=== PATIENT | male | born 1955 | race Caucasian/White ===

== ENCOUNTER 2017-02-16 10:13 | Emergency (ER) | payer MEDICARE ==
[~2017-02-16 10:13] MED LIST: EDARBI80 MG PO; LIPITOR10 MG PO; MEDROL4 M1 PO; SYNTHROID175 MCG PO; XANAX0.5 MG PO; ZYLOPRIM300 MG PO
[2017-02-16 10:59] LABS: BASO % 0.3 % (0.2-1.2); EOS # 0.4 10_X3_uL (0.0-0.5); GRAN # 8.1 10_X3_uL (1.8-5.4); GRAN % 73.6 % (34.0-67.9); HEMATOCRIT 37.6 % (40-51); HEMOGLOBIN 12.2 g/dL (13.7-17.5); LYMPH # 0.8 10_X3_uL (1.3-3.6); LYMPH % 7.4 % (21.8-53.1); MEAN CORPUSCULAR HGB CONC 32.4 g/dL (32.0-36.0); MEAN CORPUSCULAR VOLUME 92.4 fL (79-92); MEAN PLATELET VOLUME 9.6 fl (7.5-11.5); MONO # 1.6 10_X3_uL (0.3-0.8); MONO % 14.7 % (5.3-12.2); PLATELET COUNT 372 x10_3/uL (163-337); RED BLOOD COUNT 4.07 x10_6/uL (4.6-6.1); RED CELL DISTRIBUTION WIDTH 14.5 % (11.6-14.4)
[2017-02-16 11:13] LABS: ALBUMIN 3.4 gm/dL (3.4-5.0); ALKALINE PHOSPHATASE 166 U/L (50-136); ALT/SGPT 15 U/L (7.53-40.17); AST/SGOT 14 U/L (6.66-35.34); BILIRUBIN,TOTAL 0.69 mg/dL (0.0-1.0); BLOOD UREA NITROGEN 21 mg/dL (7-18); CALCIUM 8.6 mg/dL (8.7-10.7); CARBON DIOXIDE 25 mmol/L (21-32); CREATININE 0.9 mg/dL (0.6-1.3); GLUCOSE,RANDOM 219 mg/dL (70-99); POTASSIUM 4.2 mmol/L (3.5-5.1); SODIUM 136 mmol/L (136-145); TOTAL PROTEIN 7.1 gm/dL (6.4-8.2)
== END 2017-02-16 15:20 | disposition short-term general hospital (02) ==
LOC: ER 10:13
PROVIDERS: Family Medicine
DX: J40 Bronchitis, not specified as acute or chronic (principal); R06.02 Shortness of breath; R91.1 Solitary pulmonary nodule; I51.9 Heart disease, unspecified; E78.5 Hyperlipidemia, unspecified; I10 Essential (primary) hypertension; F17.210 Nicotine dependence, cigarettes, uncomplicated; Z88.2 Allergy status to sulfonamides; Z79.899 Other long term (current) drug therapy; Z79.891 Long term (current) use of opiate analgesic
CPT/HCPCS: 36415; 71010; 71250; 80048; 80053; 83880; 85025; 86738; 87040; 87070; 87205; 87400; 93005; 94664; 96365; 99070; 99284; 99285-25

== ENCOUNTER 2017-03-04 20:50 | Inpatient (IN) | payer MEDICARE ==
[~2017-03-04] VITALS: Ht 182.9 cm; Wt 120.0 kg
[2017-03-04 21:49] LABS: BASO # 0.1 10_X3_uL (0.0-0.1); BASO % 0.4 % (0.2-1.2); EOS # 0.1 10_X3_uL (0.0-0.5); EOS % 0.3 % (0.8-7.0); GRAN # 20.5 10_X3_uL (1.8-5.4); GRAN % 82.9 % (34.0-67.9); HEMATOCRIT 35.7 % (40-51); HEMOGLOBIN 11.5 g/dL (13.7-17.5); LYMPH # 1.3 10_X3_uL (1.3-3.6); LYMPH % 5.1 % (21.8-53.1); MEAN CORPUSCULAR HEMOGLOBIN 28.9 pg (27.0-33.0); MEAN CORPUSCULAR HGB CONC 32.2 g/dL (32.0-36.0); MEAN CORPUSCULAR VOLUME 89.7 fL (79-92); MEAN PLATELET VOLUME 10.2 fl (7.5-11.5); MONO # 2.8 10_X3_uL (0.3-0.8); MONO % 11.3 % (5.3-12.2); PLATELET COUNT 458 x10_3/uL (163-337); RED BLOOD COUNT 3.98 x10_6/uL (4.6-6.1); RED CELL DISTRIBUTION WIDTH 15.1 % (11.6-14.4)
[2017-03-04 21:51] LABS: WHITE BLOOD COUNT 24.7 x10_3/uL (4.2-9.1)
[2017-03-04 22:08] LABS: ALBUMIN 2.7 gm/dL (3.4-5.0); ALKALINE PHOSPHATASE 148 U/L (50-136); ALT/SGPT 29 U/L (7.53-40.17); AST/SGOT 17 U/L (6.66-35.34); BILIRUBIN,TOTAL 0.66 mg/dL (0.0-1.0); BLOOD UREA NITROGEN 25 mg/dL (7-18); CALCIUM 8.7 mg/dL (8.7-10.7); CARBON DIOXIDE 20 mmol/L (21-32); CREATININE 1.2 mg/dL (0.6-1.3); GLUCOSE,RANDOM 200 mg/dL (70-99); POTASSIUM 4.8 mmol/L (3.5-5.1); SODIUM 136 mmol/L (136-145); TOTAL PROTEIN 6.5 gm/dL (6.4-8.2)
[2017-03-05 07:27] LABS: BASO # 0.1 10_X3_uL (0.0-0.1); BASO % 0.5 % (0.2-1.2); GRAN % 91.4 % (34.0-67.9); HEMOGLOBIN 10.5 g/dL (13.7-17.5); LYMPH # 1.1 10_X3_uL (1.3-3.6); LYMPH % 4.1 % (21.8-53.1); MEAN CORPUSCULAR HEMOGLOBIN 29.2 pg (27.0-33.0); MEAN CORPUSCULAR HGB CONC 31.8 g/dL (32.0-36.0); MEAN CORPUSCULAR VOLUME 91.9 fL (79-92); MEAN PLATELET VOLUME 10.3 fl (7.5-11.5); MONO # 1.1 10_X3_uL (0.3-0.8); PLATELET COUNT 501 x10_3/uL (163-337); RED BLOOD COUNT 3.59 x10_6/uL (4.6-6.1)
[2017-03-05 07:48] LABS: WHITE BLOOD COUNT 27.3 x10_3/uL (4.2-9.1)
[2017-03-05 07:57] LABS: ALBUMIN 2.5 gm/dL (3.4-5.0); BILIRUBIN,TOTAL 0.41 mg/dL (0.0-1.0); CALCIUM 8.3 mg/dL (8.7-10.7); CREATININE 1.5 mg/dL (0.6-1.3); POTASSIUM 5.6 mmol/L (3.5-5.1); TOTAL PROTEIN 6.1 gm/dL (6.4-8.2)
[2017-03-06 07:40] LABS: HEMATOCRIT 30.8 % (40-51); MEAN CORPUSCULAR HEMOGLOBIN 29.7 pg (27.0-33.0); MEAN CORPUSCULAR HGB CONC 32.5 g/dL (32.0-36.0); MEAN CORPUSCULAR VOLUME 91.4 fL (79-92); MEAN PLATELET VOLUME 10.5 fl (7.5-11.5); RED BLOOD COUNT 3.37 x10_6/uL (4.6-6.1); RED CELL DISTRIBUTION WIDTH 14.9 % (11.6-14.4)
[2017-03-06 07:47] LABS: ALBUMIN 2.5 gm/dL (3.4-5.0); ALKALINE PHOSPHATASE 144 U/L (50-136); ALT/SGPT 30 U/L (7.53-40.17); AST/SGOT 21 U/L (6.66-35.34); BILIRUBIN,TOTAL 0.18 mg/dL (0.0-1.0); BLOOD UREA NITROGEN 32 mg/dL (7-18); CALCIUM 7.7 mg/dL (8.7-10.7); CARBON DIOXIDE 20 mmol/L (21-32); CREATININE 0.9 mg/dL (0.6-1.3); GLUCOSE,RANDOM 220 mg/dL (70-99); MAGNESIUM 2.3 mg/dL (1.8-2.4); POTASSIUM 4.7 mmol/L (3.5-5.1); SODIUM 140 mmol/L (136-145); TOTAL PROTEIN 5.8 gm/dL (6.4-8.2)
[2017-03-07 03:05] LABS: HEMATOCRIT 30.1 % (40-51); HEMOGLOBIN 9.6 g/dL (13.7-17.5); MEAN CORPUSCULAR HEMOGLOBIN 29.1 pg (27.0-33.0); MEAN CORPUSCULAR HGB CONC 31.9 g/dL (32.0-36.0); MEAN CORPUSCULAR VOLUME 91.2 fL (79-92); MEAN PLATELET VOLUME 10.1 fl (7.5-11.5); RED BLOOD COUNT 3.3 x10_6/uL (4.6-6.1); RED CELL DISTRIBUTION WIDTH 14.9 % (11.6-14.4); WHITE BLOOD COUNT 18.4 x10_3/uL (4.2-9.1)
[2017-03-07 03:31] LABS: ALBUMIN 2.2 gm/dL (3.4-5.0); ALKALINE PHOSPHATASE 113 U/L (50-136); ALT/SGPT 47 U/L (7.53-40.17); AST/SGOT 36 U/L (6.66-35.34); BLOOD UREA NITROGEN 26 mg/dL (7-18); CALCIUM 8.1 mg/dL (8.7-10.7); CARBON DIOXIDE 23 mmol/L (21-32); CREATININE 0.8 mg/dL (0.6-1.3); GLUCOSE,RANDOM 162 mg/dL (70-99); POTASSIUM 4.6 mmol/L (3.5-5.1); SODIUM 143 mmol/L (136-145); TOTAL PROTEIN 5.6 gm/dL (6.4-8.2)
[2017-03-07 03:35] LABS: BILIRUBIN,TOTAL < 0.15 mg/dL (0.0-1.0)
== END 2017-03-07 13:02 | disposition other institution (70) | DRG 180 ==
LOC: ER 20:50 → MS 23:26
PROVIDERS: Emergency Medicine; ADMIT Family Medicine
DX: C34.92 Malignant neoplasm of unspecified part of left bronchus or lung (principal); J18.9 Pneumonia, unspecified organism; N17.9 Acute kidney failure, unspecified; J44.0 Chronic obstructive pulmonary disease with (acute) lower respiratory infection; Y95 Nosocomial condition; R91.8 Other nonspecific abnormal finding of lung field; D64.9 Anemia, unspecified; R79.89 Other specified abnormal findings of blood chemistry; D47.3 Essential (hemorrhagic) thrombocythemia; D72.829 Elevated white blood cell count, unspecified; E78.5 Hyperlipidemia, unspecified; R59.0 Localized enlarged lymph nodes; I51.9 Heart disease, unspecified; E11.9 Type 2 diabetes mellitus without complications; Z95.1 Presence of aortocoronary bypass graft; F17.210 Nicotine dependence, cigarettes, uncomplicated; Z88.2 Allergy status to sulfonamides; Z79.82 Long term (current) use of aspirin; Z79.899 Other long term (current) drug therapy; Z79.4 Long term (current) use of insulin
CPT/HCPCS: 36415; 71020; 71260; 80053; 80061; 80202; 82962; 83036; 83605; 83735; 83880; 84132; 85025; 86738; 87040; 87070; 87205; 87400; 93005; 94640; 94664; 96365; 96375; 99070; 99285; 99285-25; J2543; J2930; J3370; J7040; J7050; Q9967

== ENCOUNTER 2017-03-04 20:50 | Emergency (ER) | payer MEDICARE | END 2017-03-04 23:26 | disposition other institution (70) | LOC: ER 20:50 | DX: C34.90 Malignant neoplasm of unspecified part of unspecified bronchus or lung (principal); J18.9 Pneumonia, unspecified organism; J44.0 Chronic obstructive pulmonary disease with (acute) lower respiratory infection; R91.8 Other nonspecific abnormal finding of lung field; R00.0 Tachycardia, unspecified; Z95.1 Presence of aortocoronary bypass graft; Z88.2 Allergy status to sulfonamides; F17.210 Nicotine dependence, cigarettes, uncomplicated; Z79.82 Long term (current) use of aspirin; Z79.899 Other long term (current) drug therapy; Z79.4 Long term (current) use of insulin | CPT/HCPCS: 99285; 99285-25 ==

== ENCOUNTER 2017-03-24 12:43 | Emergency (ER) | payer MEDICARE ==
[2017-03-24 13:40] LABS: BASO % 0.3 % (0.2-1.2); EOS # 0.5 10_X3_uL (0.0-0.5); EOS % 4.4 % (0.8-7.0); GRAN # 8.1 10_X3_uL (1.8-5.4); GRAN % 76.7 % (34.0-67.9); HEMATOCRIT 32.7 % (40-51); HEMOGLOBIN 10.3 g/dL (13.7-17.5); LYMPH # 1.4 10_X3_uL (1.3-3.6); LYMPH % 12.8 % (21.8-53.1); MEAN CORPUSCULAR HEMOGLOBIN 28.4 pg (27.0-33.0); MEAN CORPUSCULAR HGB CONC 31.5 g/dL (32.0-36.0); MEAN CORPUSCULAR VOLUME 90.1 fL (79-92); MONO # 0.6 10_X3_uL (0.3-0.8); MONO % 5.8 % (5.3-12.2); PLATELET COUNT 502 x10_3/uL (163-337); RED BLOOD COUNT 3.63 x10_6/uL (4.6-6.1); RED CELL DISTRIBUTION WIDTH 15.2 % (11.6-14.4); WHITE BLOOD COUNT 10.6 x10_3/uL (4.2-9.1)
[2017-03-24 13:49] LABS: BLOOD UREA NITROGEN 23 mg/dL (7-18); CALCIUM 8.3 mg/dL (8.7-10.7); CARBON DIOXIDE 25 mmol/L (21-32); CREATININE 0.8 mg/dL (0.6-1.3); GLUCOSE,RANDOM 117 mg/dL (70-99); POTASSIUM 3.7 mmol/L (3.5-5.1); SODIUM 141 mmol/L (136-145)
[2017-03-24 14:42] LABS: PARTIAL THROMBOPLASTIN TIME 29.1 SECONDS (21.8-28.4); PROTHROMBIN TIME (PATIENT) 10.5 SECONDS (9.6-10.8)
== END 2017-03-24 17:10 ==
LOC: ER 12:43
PROVIDERS: Emergency Medicine
DX: M79.604 Pain in right leg (principal); M79.89 Other specified soft tissue disorders; L03.115 Cellulitis of right lower limb; D64.9 Anemia, unspecified; I20.9 Angina pectoris, unspecified; E11.9 Type 2 diabetes mellitus without complications; I10 Essential (primary) hypertension; M10.9 Gout, unspecified; J44.9 Chronic obstructive pulmonary disease, unspecified; Z95.1 Presence of aortocoronary bypass graft; Z98.890 Other specified postprocedural states; Z88.2 Allergy status to sulfonamides
CPT/HCPCS: 36415; 80048; 85025; 85610; 85730; 87040; 93971; 96365; 99070; 99284; 99284-25